=== PATIENT | male | born 1970 | race Caucasian/White ===

== ENCOUNTER → 2022-11-03 | Outpatient (CLI) | payer BC ==
[~2022-11-03] MED LIST: LIDOCAINE 1% MDV 20ML VIAL As Ordered ONE
[2022-11-03 12:52] VITALS: TEMP 98.6
[2022-11-03 13:30] VITALS: BP 160/87; O2SAT 98
== END ==
LOC: M IRPRO 12:43
PROVIDERS: ATTEND Otolaryngology
DX: R22.1 Localized swelling, mass and lump, neck (principal)

== ENCOUNTER → 2023-01-16 | Outpatient (CLI) | payer BC ==
[~2023-01-16] MED LIST changes: +ISOVUE-370 76% 100ML VIAL As Ordered ONE; -LIDOCAINE 1% MDV 20ML VIAL As Ordered ONE
== END ==
LOC: M RAD 07:20
PROVIDERS: ATTEND Otolaryngology
DX: R22.1 Localized swelling, mass and lump, neck (principal)